=== PATIENT | female | born 1975 | race Caucasian/White ===

== ENCOUNTER → 2020-05-19 | Outpatient (CLI) | payer OTHER ==
[~2020-05-19] MED LIST: FLEXERIL 10 MG10 MG PO; IBUPROFEN800 MG PO
== END ==
LOC: EMI 14:30
DX: M25.361 Other instability, right knee (principal); M25.461 Effusion, right knee; M24.10 Other articular cartilage disorders, unspecified site; R60.0 Localized edema
CPT/HCPCS: 73721

== ENCOUNTER → 2020-11-28 | Outpatient (CLI) | payer OTHER | LOC: MAMO 14:30 | DX: Z12.31 Encounter for screening mammogram for malignant neoplasm of breast (principal) | CPT/HCPCS: 77063; 77067 ==

== ENCOUNTER 2021-07-25 16:01 | Emergency (ER) | payer SELFPAY ==
[2021-07-25] MEDS ORDERED: IBUPROFEN800 MG PO (18:24)
== END 2021-07-25 18:37 | disposition home or self-care (01) ==
LOC: ER1 16:01
DX: S93.402A Sprain of unspecified ligament of left ankle, initial encounter (principal); S80.01XA Contusion of right knee, initial encounter; W19.XXXA Unspecified fall, initial encounter; Y92.830 Public park as the place of occurrence of the external cause
CPT/HCPCS: 73562; 73600; 99283